=== PATIENT | male | born 1960 | race Caucasian/White ===

== ENCOUNTER 2018-05-02 17:43 | Emergency (ER) | payer OTHER, SELFPAY ==
[~2018-05-02] VITALS: Ht 160 cm; Wt 64.0 kg
[2018-05-02 17:46] VITALS: BP 144/101
[2018-05-02] MEDS ORDERED: L.E.T SOLUTION TP ONE ×2 (19:00→19:15)
[2018-05-02] MEDS ORDERED: DIPH,PERTUSS(ACELL),TET VAC/PF 0.5 ML IM-VACC ONE ×2 (19:00→19:15)
--- NOTE | 2018-05-02 19:04 | NUR ---
REPORT FROM KASSIDY TAYLOR. PT AMBULATED TO BATHROOM. VSS. PT HAS NO NEEDS AT THIS TIME.CALL LIGHT IN REACH
--- NOTE | 2018-05-02 19:45 | NUR ---
LET APPLIED AND TECH AT BEDSIDE TO IRRIGATE
[2018-05-02] MEDS ORDERED: LIDOCAINE-MPF 1%, 5ML INFIL ONE (20:00)
[2018-05-02] MEDS ORDERED: LIDOCAINE-MPF 1%, 5ML ONE (20:11)
--- NOTE | 2018-05-02 20:30 | NUR ---
Patient given discharge instructions and they have confirmed that they understand the instructions. Patient ambulatory with steady gait.
== END 2018-05-02 20:57 | disposition left against medical advice (07) ==
LOC: ED 20:51
DX: S01.01XA Laceration without foreign body of scalp, initial encounter (principal); S01.81XA Laceration without foreign body of other part of head, initial encounter; F10.220 Alcohol dependence with intoxication, uncomplicated; W01.0XXA Fall on same level from slipping, tripping and stumbling without subsequent striking against object, initial encounter; Y93.89 Activity, other specified; Y92.488 Other paved roadways as the place of occurrence of the external cause; Y99.8 Other external cause status; Y90.9 Presence of alcohol in blood, level not specified
CPT/HCPCS: 12011; 12031; 90471; 90715; 99284; 99285

== ENCOUNTER 2018-05-18 12:15 | Emergency (ER) | payer MEDICAID, OTHER ==
[~2018-05-18] VITALS: Ht 165.1 cm; Wt 76.5 kg
[2018-05-18 12:24] VITALS: BP 136/83
[2018-05-18] MEDS ORDERED: ACETAMINOPHEN 500 MG TABLET ONE (12:43)
[2018-05-18] MEDS ORDERED: ACETAMINOPHEN 500 MG TABLET PO ONE (13:00)
[2018-05-18 13:18] LABS: RAPID INFLUENZA A Negative (Negative); RAPID INFLUENZA B Negative (Negative)
== END 2018-05-18 13:32 | disposition home or self-care (01) ==
LOC: ED 13:00
DX: J02.9 Acute pharyngitis, unspecified (principal); R50.9 Fever, unspecified; F17.200 Nicotine dependence, unspecified, uncomplicated
CPT/HCPCS: 71046; 87400; 99284

== ENCOUNTER 2018-06-10 16:20 | Emergency (ER) | payer MEDICAID ==
[~2018-06-10] VITALS: Ht 180.3 cm; Wt 78.0 kg
--- NOTE | 2018-06-10 16:24 | NUR ---
PATIENT ARRIVES FROM [facility] WHERE EMS WAS CALLED HE WAS FOUND DOWN ON [address]. HE IS TO INTOXICATED TO PERFORM BREAHYLYZER TEST - ATTEMPTED X4 WITH TECH. PATIENT IS DISORIENTED X4. SLURS. EYES CLOSED. PLACED ON MONITOR. 89% ON ROOM AIR, PLACED ON OXYGEN 2 LITERS VIA NC. PATIENT ON MONITOR. RAILS UP.
--- NOTE | 2018-06-10 16:34 | NUR ---
UNALBLE TO DO MED REC, PATIENT POOR HISTORIAN. HE IS NOT ANSWERING QUESTIONS.
--- NOTE | 2018-06-10 17:37 | NUR ---
patient sleeping soundly. wakes and sometimes pulls off oxygen and monitor. still not answering questions appropriatley
--- NOTE | 2018-06-10 18:02 | NUR ---
patient pulling off all lines and sleeping off and on. he is still not oriented. slurs. on monitor.
--- NOTE | 2018-06-10 18:33 | NUR ---
patient continues to remove monitoring equipment. replaced and reminded him to keep it on. patient vss on oxygen. slurs speech. alejandra duran.
--- NOTE | 2018-06-10 19:02 | NUR ---
Report from lillie TAYLOR. Pt attempting to use urinal. Pt requesting to stand at bedside. Pt advised that he is unsafe to stand at this time. Pt agreeable to this. Will continue to monitor.
--- NOTE | 2018-06-10 19:48 | NUR ---
PT ATTEMPTING TO STAND. PT ADVISED THAT THAT IS NO POSSIBLE RIGHT NOW DUE TO HIS INTOXICATION. PTS PANTS REMOVED BECAUSE HE UEINATED ON THEM. CHUCKS PLACED ON BED. PT MOVED BACK INTO BED. PT UNSURE WHY HE IS HERE. PT TOLD THAT HE IS VERY INTOXICATED AND WILL BE DISCHARGED WHEN SOBER. PT AGREEABLE WITH THIS
--- NOTE | 2018-06-10 19:54 | NUR ---
PT ONCE AGAIN ATTEMPTING TO GET OUT OF BED. PT VERY UNSTEADY ON FEET. PT PLACED BACK IN BED AND GIVEN URINAL.
--- NOTE | 2018-06-10 21:24 | NUR ---
PT OUT OF BED AGAIN. STILL UNSTEADY ON FEET AND SLURRING WORDS. PT PUT BACK IN BED. AGREES TO STAY IN BED.
--- NOTE | 2018-06-10 22:12 | NUR ---
PT RESTING WITH NO NEEDS AT THIS TIME. VSS. EVEN RISE AND FALL OF CHEST OBSERVED.
--- NOTE | 2018-06-10 23:00 | NUR ---
ATTEMPTED TO AMBULATE PT WITH NO SUCCESS. PT STILL UNSTEADY AND SLURRING WORDS. WILL REASSESS LATER
[2018-06-11] VITALS: BP 127/81
--- NOTE | 2018-06-11 00:20 | NUR ---
PT SLEEPING IN NAD. EVEN RISE AND FALL OF CHEST OBSERVED. CALL LIGHT IN REACH
--- NOTE | 2018-06-11 01:23 | NUR ---
PT AMBUALTED WITH A STEADY GAIT. PT VERBALIZED UNDERSTANDING OF DISCHARGE AND FOLLOW UP INSTRUCTIONS. PT GIVEN CAB VOUCHER FOR SAFE DISCHARGE
== END 2018-06-11 01:30 | disposition home or self-care (01) ==
LOC: ED 18:10
DX: F10.120 Alcohol abuse with intoxication, uncomplicated (principal); F17.200 Nicotine dependence, unspecified, uncomplicated; Z72.9 Problem related to lifestyle, unspecified; Y90.9 Presence of alcohol in blood, level not specified
CPT/HCPCS: 99283